=== PATIENT | female | born 1980 | race Caucasian/White ===

== ENCOUNTER 2025-02-26 12:18 | Emergency (ER) | payer OTHER ==
[~2025-02-26] VITALS: Ht 157.5 cm; Wt 54.4 kg
[2025-02-26] MEDS ORDERED: ONDANSETRON HCL/PF 4 MG/2 ML VIAL ONE ×2 (12:40→13:48)
[2025-02-26] MEDS: IV NS 0.9% 1,000 ML BAG IV ONE (12:53)
[2025-02-26] MEDS: ONDANSETRON HCL/PF 4 MG/2 ML VIAL IVP ONE (12:54)
[2025-02-26 13:01] LABS: PLATELET COUNT (AUTO) 220 K/uL (150-450); RED BLOOD CELL COUNT(AUTO) 4.03 MIL/uL (4.0-5.2); RED CELL DISTRIBUTION WIDTH 14.7 % (11.5-15.0); WHITE BLOOD COUNT (AUTO) 9.3 K/uL (4.3-11.0)
[2025-02-26 13:04] LABS: CALCIUM, SERUM 9.0 mg/dL (8.5-10.1); CREATININE 1.0 mg/dL (0.6-1.3); SODIUM SERUM 137 mmol/L (136-145); UREA NITROGEN, BLOOD 6 mg/dL (7-18)
[2025-02-26 13:05] LABS: ALCOHOL, BLOOD < 10 mg/dL (0-10)
[2025-02-26] MEDS ORDERED: KETOROLAC TROMETHAMINE 15 MG/ML VIAL ONE (13:48)
[2025-02-26] MEDS ORDERED: ONDA4TAB5 PO (13:49)
[2025-02-26] MEDS: ONDANSETRON HCL/PF 4 MG/2 ML VIAL IV ONE (13:55)
[2025-02-26] MEDS: KETOROLAC TROMETHAMINE 15 MG/ML VIAL IV ONE (13:56)
[2025-02-26 14:51] VITALS: BP 131/88; TEMP 98.1; O2SAT 97
[2025-02-26 15:44] LABS: AMPHETAMINE, URINE NEGATIVE (NEGATIVE); BARBITURATE, URINE NEGATIVE (NEGATIVE); BENZODIAZEPINE, URINE NEGATIVE (NEGATIVE); COCCAINE, URINE NEGATIVE (NEGATIVE); OPIATE, URINE NEGATIVE (NEGATIVE)
[2025-02-26 15:45] LABS: CANNABINOID, URINE POSITIVE (NEGATIVE)
== END 2025-02-26 14:55 | disposition home or self-care (01) ==
LOC: ER 12:28
DX: R56.9 Unspecified convulsions (principal); R10.2 Pelvic and perineal pain; J45.909 Unspecified asthma, uncomplicated
CPT/HCPCS: 99285; 96374; 96361; 96375; 93005; 96376; 70450; 85025; 80048; 36415; 84702; 80320; 80307; J2405 ×2; J7030; J1885; G0480